=== PATIENT | female | born 1995 | race Caucasian/White ===

== ENCOUNTER 2024-12-15 13:49 | Emergency (ER) | payer OTHER ==
[~2024-12-15] VITALS: Ht 172.7 cm; Wt 110.0 kg
[2024-12-15 14:07] VITALS: O2SAT 98
[2024-12-15 15:38] LABS: BASOPHILS % 1.3 % (0.0-2.0); EOSINOPHILS % 0.8 % (0.0-5.0); HEMATOCRIT. 38.4 % (36.0-48.0); HEMOGLOBIN. 12.8 g/dL (12.0-16.0); LYMPHOCYTES % 16.7 % (20.0-50.0); MEAN PLATELET VOLUME 7.7 fl (7.4-10.4); MONOCYTES % 6.5 % (2.0-8.0); NEUTROPHILS % 74.7 % (40.0-76.0); PLATELET 357 x1000/uL (130-400); RED BLOOD CELL COUNT 4.28 mill/uL (4.2-5.4); RED CELL DISTRIBUTION WIDTH 13.1 % (11.6-14.6)
[2024-12-15 15:51] LABS: CREATININE 0.6 mg/dL (0.6-1.0); UREA NITROGEN BLOOD 5 mg/dL (9-23)
[2024-12-15 16:05] LABS: B-HCG QUANTITATIVE 35693 mIU/mL (<6)
[2024-12-15 18:18] VITALS: BP 115/65; PULSE 90; RESP 18; TEMP 37.1; O2SAT 100
== END 2024-12-15 18:26 | disposition home or self-care (01) ==
LOC: ER 13:49
DX: O20.0 Threatened abortion (principal); Z3A.12 12 weeks gestation of pregnancy
CPT/HCPCS: 36415; 76801; 80048; 81025; 84702; 85025; 86850; 86900; 99284